=== PATIENT | male | born 2000 | race African-American/Black ===

== ENCOUNTER 2020-05-16 18:29 | Emergency (ER) | payer BC ==
[~2020-05-16] VITALS: Ht 177.8 cm; Wt 87.9 kg
[2020-05-16] MEDS ORDERED: LIDOCAINE HCL/EPINEPHRINE 1%-EPI 1:100,000 20 ML VIAL INFIL ONE (18:45)
[2020-05-16] MEDS ORDERED: BACITRACIN ZINC OINT UDPKT TOP ONE (20:00)
[2020-05-16 20:42] VITALS: BP 110/75
== END 2020-05-16 20:44 | disposition home or self-care (01) ==
LOC: ER 18:29
DX: S61.210A Laceration without foreign body of right index finger without damage to nail, initial encounter (principal); S61.214A Laceration without foreign body of right ring finger without damage to nail, initial encounter; W25.XXXA Contact with sharp glass, initial encounter; Y93.89 Activity, other specified; Y92.018 Other place in single-family (private) house as the place of occurrence of the external cause
CPT/HCPCS: 12002; 73130; 99283; J3490